=== PATIENT | male | born 1980 | race Caucasian/White ===

== ENCOUNTER 2024-04-30 17:16 | Emergency (ER) | payer MEDICAID ==
[~2024-04-30] VITALS: Ht 170.2 cm; Wt 90.0 kg
[2024-04-30 17:17] VITALS: TEMP 36.4; O2SAT 98
[2024-04-30 20:08] VITALS: BP 113/84; PULSE 84; RESP 16
[2024-04-30] MEDS: HYDROCODONE/ACETAMINOPHEN 5/325MG TABLET PO ONE (20:08)
[2024-04-30 20:15] LABS: BASOPHILS % 0.3 % (0.0-2.0); EOSINOPHILS % 0.6 % (0.0-5.0); HEMATOCRIT. 45.3 % (42.0-52.0); LYMPHOCYTES % 13.7 % (20.0-50.0); MEAN CORPUSCULAR HEMOGLOBIN 28.9 pg (28.0-32.0); MEAN CORPUSCULAR HGB CONC 33.1 g/dL (31.0-37.0); MEAN CORPUSCULAR VOLUME 87.4 fL (80.0-94.0); MEAN PLATELET VOLUME 9.3 fl (7.4-10.4); MONOCYTES % 6.4 % (2.0-8.0); PLATELET 187 x1000/uL (130-400); RED BLOOD CELL COUNT 5.19 mill/uL (4.7-6.1); RED CELL DISTRIBUTION WIDTH 14.6 % (11.6-14.6); WHITE BLOOD COUNT 10.6 x1000/uL (4.5-11.0)
[2024-04-30 20:21] LABS: CHLORIDE 104 mEq/L (98-107); POTASSIUM 4.4 mEq/L (3.5-5.1); SODIUM 139 mEq/L (136-145)
[2024-04-30 20:22] LABS: CALCIUM 9.4 mg/dL (8.7-10.4); CARBON DIOXIDE 29 mEq/L (21-32)
[2024-04-30 20:27] LABS: CREATININE 0.9 mg/dL (0.6-1.3); GLUCOSE 123 mg/dL (70-105); TROPONIN I HIGH SENSITIVITY 7 ng/L (3.0-53); UREA NITROGEN BLOOD 12 mg/dL (9-23)
[2024-04-30 20:29] LABS: ALANINE AMINOTRANSFERASE 35 IU/L (10-49); ALBUMIN 4.6 g/dL (3.2-4.8); ASPARTATE AMINOTRANSFERASE 19 IU/L (<34); BILIRUBIN DIRECT 0.1 mg/dL (<=3.0); BILIRUBIN TOTAL 0.5 mg/dL (0.1-1.0); PROTEIN TOTAL 7.8 g/dL (6.0-8.3)
== END 2024-04-30 22:33 | disposition left against medical advice (07) ==
LOC: ER 17:16
DX: R07.89 Other chest pain (principal); R51.9 Headache, unspecified; V49.9XXA Car occupant (driver) (passenger) injured in unspecified traffic accident, initial encounter; Y93.89 Activity, other specified; Y92.89 Other specified places as the place of occurrence of the external cause; Y99.8 Other external cause status
CPT/HCPCS: 36415; 71111; 80048; 80076; 84484; 85025; 93005; 99285